=== PATIENT | female | born 1990 | race Caucasian/White ===

== ENCOUNTER 2021-02-07 12:31 | Outpatient (REF) | payer BC, SELFPAY | END 2021-02-07 12:32 | disposition home or self-care (01) | LOC: HO.LAB 12:31 | PROVIDERS: PCP Internal Medicine; Visit Provider Internal Medicine | DX: Z20.822 Contact with and (suspected) exposure to COVID-19 (principal) | CPT/HCPCS: C9803; U0003; U0005 ==

== ENCOUNTER 2022-08-02 21:51 | Emergency (ER) | payer BC, SELFPAY ==
--- NOTE | ~2022-08-02 | XR_ITS ---
EXAMINATION: XR CHEST CLINICAL INFORMATION: Short of breath COMPARISON: None available. TECHNIQUE: Frontal view of the chest was obtained. FINDINGS: Cardiac leads overlie the chest. The lungs are well expanded. There is no focal consolidation, edema, or effusion. No pneumothorax. The cardiomediastinal silhouette is within normal limits. No acute osseous abnormality. XR/XR chest 1V IMPRESSION: Clear lungs.
[2022-08-02 21:55] VITALS: BP 154/96; PULSE 103; RESP 22; TEMP 36.8; O2SAT 97; BMI 36.7
--- NOTE | 2022-08-02 22:17 | ECG_ITS ---
Test Reason : dyspnea Blood Pressure : / mmHG Vent. Rate : 089 BPM Atrial Rate : 089 BPM P-R Int : 164 ms QRS Dur : 070 ms QT Int : 354 ms P-R-T Axes : 023 022 011 degrees QTc Int : 430 ms Normal sinus rhythm with sinus arrhythmia Normal ECG No previous ECGs available Referred By: Generic ED Physician Electronically Signed By:Chapincito Viramontes
--- NOTE | 2022-08-02 22:28 | ED_ITS ---
HPI - SOB/Dyspnea General Chief Complaint: Dyspnea Stated Complaint: sob when inhaling coughing Time Seen by Provider: 08/02/22 22:23 Source: patient Mode of arrival: ambulatory Limitations: no limitations History of Present Illness HPI Narrative: Patient with no significant past medical history been coughing with wheezing for last 6 weeks cough is mostly dry, had flu like symptoms started 6 weeks ago COVID was negative since then she is not getting better does have a cat at home but been there for a long time at work some renovation is going on but it is sealed off Patient does have postnasal drip Related Data Previous Rx's Medication Instructions Recorded albuterol sulfate 90 mcg/actuation 2 puff inhalation Q4-6H PRN 08/03/22 aerosol inhaler (ProAir HFA) shortness of breath or wheezing #8.5 grams benzonatate 200 mg capsule 200 mg PO TID PRN cough #30 caps 08/03/22 cefuroxime axetil 500 mg tablet 500 mg PO BID #20 tabs 08/03/22 prednisone 20 mg tablet 40 mg PO DAILY #10 tabs 08/03/22 Allergies Allergy/AdvReac Type Severity Reaction Status Date / Time No Known Allergies Allergy Verified 08/02/22 21:55 Review of Systems Review of Systems: Yes all other systems are reviewed and are negative [facility] Social History Social History Alcohol intake: never Smoked in Last 30 Days: No Use of substances other than those prescribed or required for medical reasons: No Advance Directives: No Advance Directives Information Provided: Yes Patient : No Physical Exam Vital Signs: Vital Signs: Last Vital Signs Temp 98.4 F 08/02/22 22:38 Pulse 81 08/02/22 23:15 Resp 14 08/02/22 23:15 BP 134/77 08/02/22 23:13 Pulse Ox 97 08/02/22 23:13 O2 Del Method 08/02/22 23:13 BMI result Body Mass Index 36.7 Appearance: Alert. Oriented X3. No acute distress. ENT: Pharynx normal. Oral Mucosa moist Neck: Normal inspection. Neck supple. CVS: Normal heart rate and rhythm. Pulses normal. Respiratory: mild respiratory distress. Frequent dry cough prolonged expiration no crackles Abdomen: Soft and nontender. Bowel sounds are present, Skin: Skin warm and dry. Normal skin color. Normal skin turgor. Extremities: No lower extremity edema. No calf tenderness Neuro: Oriented X 3. Medications Administered Discontinued Medications Generic Name Dose Route Start Last Admin Trade Name [place] PRN Reason Stop Dose Admin Benzonatate 200 mg 08/02/22 22:55 08/02/22 23:17 Benzonatate 100 Mg Capsule PO 08/02/22 22:56 200 mg ONCE ONE Administration Albuterol Sulfate 5 mg/ 0 mg 08/02/22 22:55 08/02/22 23:12 Ipratropium [place]ax 0.5 mg INHALE 08/02/22 22:56 1 each ONCE ONE Administration Dexamethasone 10 mg 08/02/22 22:56 08/02/22 23:17 Dexamethasone 2 Mg Tablet PO 08/02/22 22:57 10 mg ONCE ONE Administration Medical Decision Making Medical Decision Making [facility] Narrative: Patient take with allergic bronchitis with stable labs elevated used feel levels chest x-ray negative patient improved after Decadron and albuterol inhaler d ischarge patient home on inhaler and prednisone Lab Data [facility] Lab Attestation statement: I reviewed the patient's lab results. 08/02/22 22:37 08/02/22 04:19 Labs: Lab Results 08/02/22 08/02/22 08/02/22 Range/Units 04:19 22:37 22:37 WBC 11.5 H (4.8-10.8) X10*3/uL RBC 4.39 (4.20-5.50) X10*6/uL Hgb 12.8 (12.0-16.0) g/dl Hct 37.9 (37.0-47.0) % MCV 86.3 (80.0-98.0) fL MCH 29.2 (27.0-33.0) pg MCHC 33.8 (31.0-35.0) g/dl RDW 12.4 (11.0-16.0) % Plt Count 345 (160-400) X10*3/uL MPV 10.2 (9.4-12.3) fL Immature Gran % (Auto) 0.2 (0.0-0.4) % Neut % (Auto) 50.0 (45-73) % Lymph % (Auto) 37.3 (20-40) % [place] % (Auto) 7.2 (2-11) % Eos % (Auto) 4.9 H (0-4) % Baso % (Auto) 0.4 (0-2) % Lymph # (Auto) 4.3 (1.2-4.9) X10*3/uL [place] # (Auto) 0.8 (0.1-1.2) X10*3/uL Eos # (Auto) 0.6 H (0.0-0.4) X10*3/uL Baso # (Auto) 0.1 (0.0-0.2) X10*3/uL Abs Immat Gran (auto) 0.02 (0.00-0.03) X10*3/uL Absolute Neuts (auto) 5.8 (2.0-8.3) x10*3/uL Absolute Nucleated RBC 0.000 (0.0-0.012) X10*3/uL Nucleated RBC % (auto) 0.0 (0.0-0.2) /100WBC Sodium 142 (135-145) mmol/L Potassium 4.4 (3.3-5.1) mmol/L Chloride 108 (96-108) mmol/L Carbon Dioxide 24 (22-29) mmol/L Anion Gap 14 (12-20) BUN 15 (9-16) mg/dL Creatinine 0.76 (0.5-1.4) mg/dL Estim Creat Clear Calc 126.6 Estimated GFR > 60 Random Glucose 97 (60-115) mg/dL Calcium 9.5 (8.4-10.2) mg/dL Troponin I High Sens 3.9 (<3.5-17.0) ng/L COVID-19 (KARIE) (Negative) COVID-19 Clin Com Influenza Type A (PCR) (Negative) Influenza Type B (PCR) (Negative) RSV RNA Qual (PCR) (Negative) SARS-CoV-2 RNA (RT-PCR) (Negative) 08/02/22 08/02/22 Range/Units 22:48 23:12 WBC (4.8-10.8) X10*3/uL RBC (4.20-5.50) X10*6/uL Hgb (12.0-16.0) g/dl Hct (37.0-47.0) % MCV (80.0-98.0) fL MCH (27.0-33.0) pg MCHC (31.0-35.0) g/dl RDW (11.0-16.0) % Plt Count (160-400) X10*3/uL MPV (9.4-12.3) fL Immature Gran % (Auto) (0.0-0.4) % Neut % (Auto) (45-73) % Lymph % (Auto) (20-40) % [place] % (Auto) (2-11) % Eos % (Auto) (0-4) % Baso % (Auto) (0-2) % Lymph # (Auto) (1.2-4.9) X10*3/uL [place] # (Auto) (0.1-1.2) X10*3/uL Eos # (Auto) (0.0-0.4) X10*3/uL Baso # (Auto) (0.0-0.2) X10*3/uL Abs Immat Gran (auto) (0.00-0.03) X10*3/uL Absolute Neuts (auto) (2.0-8.3) x10*3/uL Absolute Nucleated RBC (0.0-0.012) X10*3/uL Nucleated RBC % (auto) (0.0-0.2) /100WBC Sodium (135-145) mmol/L Potassium (3.3-5.1) mmol/L Chloride (96-108) mmol/L Carbon Dioxide (22-29) mmol/L Anion Gap (12-20) BUN (9-16) mg/dL Creatinine (0.5-1.4) mg/dL Estim Creat Clear Calc Estimated GFR Random Glucose (60-115) mg/dL Calcium (8.4-10.2) mg/dL Troponin I High Sens (<3.5-17.0) ng/L COVID-19 (KARIE) Negative (Negative) COVID-19 Clin Com See Note Influenza Type A (PCR) NEGATIVE (Negative) Influenza Type B (PCR) NEGATIVE (Negative) RSV RNA Qual (PCR) NEGATIVE (Negative) SARS-CoV-2 RNA (RT-PCR) NEGATIVE (Negative) Discharge Plan Discharge Clinical Impression: Allergic bronchitis Patient Disposition: Home, Self-Care Instructions: Acute Bronchitis (ED) Additional Instructions: Use inhaler as advised Cough drops and prednisone as prescribed Follow with PCP if not better Antibiotics as prescribed Prescriptions: New benzonatate 200 mg capsule 200 mg PO TID PRN (Reason: cough) Qty: 30 0RF cefuroxime axetil 500 mg tablet 500 mg PO BID Qty: 20 0RF prednisone 20 mg tablet 40 mg PO DAILY Qty: 10 0RF albuterol sulfate [ProAir HFA] 90 mcg/actuation HFA aerosol inhaler 2 puff inhalation Q4-6H PRN (Reason: shortness of breath or wheezing) Qty: 8.5 0RF
[2022-08-02 22:38] VITALS: BP 125/79; PULSE 89; RESP 11; TEMP 36.9; O2SAT 97
[2022-08-02 22:42] LABS: MANUAL DIFF FLAG NO
[2022-08-02 22:44] LABS: Basophils Absolute Auto 0.1 X10*3/uL (0.0-0.2); Basophils Percent Auto 0.4 % (0-2); Eosinophils Absolute Auto 0.6 X10*3/uL (0.0-0.4); Eosinophils Percent Auto 4.9 % (0-4); Hematocrit 37.9 % (37.0-47.0); Hemoglobin 12.8 g/dl (12.0-16.0); Imm Gran Abs Auto 0.02 X10*3/uL (0.00-0.03); Imm Gran Pct Auto 0.2 % (0.0-0.4); Lymphocytes Absolute Auto 4.3 X10*3/uL (1.2-4.9); Lymphocytes Percent Auto 37.3 % (20-40); Mean Corpuscular HGB Conc 33.8 g/dl (31.0-35.0); Mean Corpuscular Hemoglobin 29.2 pg (27.0-33.0); Mean Corpuscular Volume 86.3 fL (80.0-98.0); Mean Platelet Volume 10.2 fL (9.4-12.3); Monocytes Absolute Auto 0.8 X10*3/uL (0.1-1.2); Monocytes Percent Auto 7.2 % (2-11); Neutrophils Absolute Auto 5.8 x10*3/uL (2.0-8.3); Platelet Count 345 X10*3/uL (160-400); Red Blood Count 4.39 X10*6/uL (4.20-5.50); Red Cell Distribution Width 12.4 % (11.0-16.0); White Blood Count 11.5 X10*3/uL (4.8-10.8)
--- NOTE | 2022-08-02 22:59 | PC.NURSE ---
pt c/o chest discomfort from coughing and wheezing, expiratory wheezing, aox4, states she used An inhaler for a short period of time when she was a child, denies smoking, denies fever and chills, states cough has been ongoing for over 6 wks now able to speak in full sentences no respiratory distress
[2022-08-02 23:06] LABS: Troponin-I High Sensitivity 3.9 ng/L (<3.5-17.0)
[2022-08-02 23:13] VITALS: BP 134/77; PULSE 96; RESP 11; O2SAT 97
[2022-08-02 23:15] VITALS: PULSE 81; RESP 14; O2SAT 97
[2022-08-02] MEDS: Benzonatate 100 MG CAPSULE 200 MG PO (23:17)
[2022-08-02] MEDS: dexAMETHasone 2 MG TABLET 10 MG PO (23:17)
[2022-08-02 23:22] LABS: Anion Gap 14 (12-20); Blood Urea Nitrogen 15 mg/dL (9-16); Calcium 9.5 mg/dL (8.4-10.2); Carbon Dioxide 24 mmol/L (22-29); Chloride 108 mmol/L (96-108); Creatinine Clr Calc Pharmacy 126.6; Estimated Glomerular Filt Rate > 60; Glucose Random 97 mg/dL (60-115); Potassium 4.4 mmol/L (3.3-5.1); Sodium 142 mmol/L (135-145)
[2022-08-02 23:31] LABS: COVID-19 Test Negative (Negative); IDNOW Serial# 6674DD1D
[2022-08-02 23:53] LABS: Influenza A PCR NEGATIVE (Negative); Influenza B PCR NEGATIVE (Negative); Resp Syncy Virus RNA Qual PCR NEGATIVE (Negative); SARS COV2 PCR INHOUSE NEGATIVE (Negative)
[2022-08-03 00:16] VITALS: BP 112/56; PULSE 111; RESP 19; TEMP 36.9; O2SAT 99
[2022-08-03] MEDS: Albuterol Sulfate 90 MCG 8 GM INHALER 2 PUFF INHALE (00:19)
--- NOTE | 2022-08-03 00:26 | PC.NURSE ---
meds inc breathing txmt effective, pt denies pain, denies sob
--- NOTE | 2022-08-03 00:27 | PC.NURSE ---
Discharge instructions given/explained to pt Ambulates safely/independently No SOB, able to speak in full sentences No respiratory distress aox4
== END 2022-08-03 00:25 | disposition home or self-care (01) ==
PROVIDERS: Emergency Provider Internal Medicine; PCP Internal Medicine
DX: J45.909 Unspecified asthma, uncomplicated (principal); R06.02 Shortness of breath; Z20.822 Contact with and (suspected) exposure to COVID-19; Z20.828 Contact with and (suspected) exposure to other viral communicable diseases
CPT/HCPCS: 0241U; 36415; 71045; 80048; 84484; 85025; 87635; 93005; 94640; 99284; 99285; J8540

== ENCOUNTER 2023-01-19 19:41 | Emergency (ER) | payer BC, SELFPAY ==
--- NOTE | ~2023-01-19 | US_ITS ---
EXAMINATION: US VENOUS ULTRASOUND WITH DOPPLER LOWER EXTREMITY, LEFT CLINICAL INFORMATION: Pain and swelling. COMPARISON: None available. TECHNIQUE: Ultrasound of the deep veins is performed from the hip to the calf with compression sonography and color and pulse Doppler assessment. Spectral analysis with color-flow imaging is performed. FINDINGS: There is normal venous compression and respiratory variation and augmented flow. The visualized common femoral vein, superficial femoral vein, profunda femoral vein, popliteal vein, and the trifurcation region shows no evidence of deep venous thrombosis. There is no significant popliteal fossa cyst. There is superficial vein thrombus in the left greater saphenous vein distal to the knee. There is superficial thrombus involves the proximal calf through mid calf.. Greater saphenous vein in the thigh as well as in the distal calf is normal. If the patient's symptoms persist, followup ultrasound in 5 days 7 days might be of value to exclude proximal propagation from a non-visualized calf vein. US/US venous duplex LE IMPRESSION: 1. No DVT demonstrated in the left lower extremity. 2. Superficial vein thrombus in the greater saphenous vein distal to the knee.
[2023-01-19 19:55] VITALS: BP 170/86; PULSE 118; RESP 18; TEMP 37.1; O2SAT 100; BMI 35.7
--- NOTE | 2023-01-19 19:56 | ED_ITS ---
HPI - General Adult General Chief complaint: Extremity Injury, Lower Stated complaint: Blood clot left leg Time Seen by Provider: 01/19/23 22:02 Source: patient Mode of arrival: ambulatory Limitations: no limitations History of Present Illness HPI narrative: Patient is a 32-year-old female with cervical cancer, recent hysterectomy, just finished chemo and radiation. presenting to the emergency department with complaint of left calf pain, swelling. Denies prior DVT or PE. Is currently on hormone replacement therapy. Denies chest pain or shortness of breath. Denies numbness or tingling to leg or foot. Denies fevers. States initially thought pain was related to a pulled muscle from swimming. Related Data Previous Rx's Medication Instructions Recorded albuterol sulfate 90 mcg/actuation 2 puff inhalation Q4-6H PRN 08/03/22 aerosol inhaler (ProAir HFA) shortness of breath or wheezing #8.5 grams benzonatate 200 mg capsule 200 mg PO TID PRN cough #30 caps 08/03/22 cefuroxime axetil 500 mg tablet 500 mg PO BID #20 tabs 08/03/22 prednisone 20 mg tablet 40 mg (2 x 20 mg) PO DAILY #10 tabs 08/03/22 apixaban 5 mg (74 tabs) tablets in 5 mg PO BID #74 ea 01/19/23 a dose pack (Eliquis DVT-PE Treat 30D Start) Allergies Allergy/AdvReac Type Severity Reaction Status Date / Time No Known Allergies Allergy Verified 01/19/23 19:59 Review of Systems 2 Review of Systems: Yes all other systems are reviewed and are negative [facility] Social History Social History Alcohol intake: never Physical Exam ED Vital Signs: BMI result Body Mass Index 35.7 Appearance: Alert. Oriented X3. No acute distress. Eyes: PERRLA, No Nystagmus ENT: Pharynx normal. Oral Mucosa moist Neck: Normal inspection. Neck supple. CVS: Normal heart rate and rhythm. Pulses normal. Respiratory: No respiratory distress. Equal air entry bilateral, no wheezing/rales/rhonchi Abdomen: Soft and nontender. Bowel sounds are present, no mass palpable, no CVA tenderness Skin: Skin warm and dry. Normal skin color. Normal skin turgor. Extremities: No lower extremity edema. No calf tenderness fullness noticed in right medial aspect of the thigh Neuro: Oriented X 3. No motor deficit. Course Course Course Narrative: This is a rapid medical exam: Additional HPI, ROS, PE not included below will be deferred to primary provider. Patient is a 32-year-old female with cervical cancer, recent hysterectomy, just finished chemo and radiation. presenting to the emergency department with complaint of left calf pain, swelling. Denies prior DVT or PE. Is currently on hormone replacement therapy. Denies chest pain or shortness of breath. Denies numbness or tingling to leg or foot. Denies fevers. States initially thought pain was related to a pulled muscle from swimming. Plan: labs, US Medications Administered Discontinued Medications Generic Name Dose Route Start Last Admin Trade Name Freq PRN Reason Stop Dose Admin Apixaban 10 mg 01/19/23 22:21 01/20/23 00:03 Apixaban 5 Mg Tablet PO 01/19/23 22:22 10 mg ONCE ONE Administration Medical Decision Making Medical Decision Making [facility] Narrative: Patient with greater saphenous vein thrombosis high risk to develop DVT will discharge patient home on Eliquis advised to follow with Hematology Lab Data [facility] Lab Attestation statement: I reviewed the patient's lab results. 01/19/23 20:15 01/19/23 20:15 Labs: Lab Results 01/19/23 Range/Units 20:15 WBC 4.5 L (4.8-10.8) X10*3/uL RBC 3.80 L (4.20-5.50) X10*6/uL Hgb 11.6 L (12.0-16.0) g/dl Hct 33.5 L (37.0-47.0) % MCV 88.2 (80.0-98.0) fL MCH 30.5 (27.0-33.0) pg MCHC 34.6 (31.0-35.0) g/dl RDW 16.0 (11.0-16.0) % Plt Count 263 (160-400) X10*3/uL MPV 9.2 L (9.4-12.3) fL Immature Gran % (Auto) 1.1 H (0.0-0.4) % Neut % (Auto) 53.4 (45-73) % Lymph % (Auto) 28.2 (20-40) % [place] % (Auto) 15.1 H (2-11) % Eos % (Auto) 1.8 (0-4) % Baso % (Auto) 0.4 (0-2) % Lymph # (Auto) 1.3 (1.2-4.9) X10*3/uL [place] # (Auto) 0.7 (0.1-1.2) X10*3/uL Eos # (Auto) 0.1 (0.0-0.4) X10*3/uL Baso # (Auto) 0.0 (0.0-0.2) X10*3/uL Abs Immat Gran (auto) 0.05 H (0.00-0.03) X10*3/uL Absolute Neuts (auto) 2.4 (2.0-8.3) x10*3/uL Absolute Nucleated RBC 0.000 (0.0-0.012) X10*3/uL Nucleated RBC % (auto) 0.0 (0.0-0.2) /100WBC PT 11.0 L (11.1-13.3) SEC INR 0.9 (0.9-1.1) Sodium 142 (135-145) mmol/L Potassium 4.1 (3.3-5.1) mmol/L Chloride 107 (96-108) mmol/L Carbon Dioxide 25 (22-29) mmol/L Anion Gap 14 (12-20) BUN 15 (9-16) mg/dL Creatinine 0.85 (0.5-1.4) mg/dL Estim Creat Clear Calc 111.4 Estimated GFR > 60 Random Glucose 98 (60-115) mg/dL Calcium 10.0 (8.4-10.2) mg/dL Total Bilirubin 0.5 (0.0-1.0) mg/dL AST 14 (5-31) U/L ALT 25 (0-31) U/L Alkaline Phosphatase 51 (39-117) U/L Total Protein 7.5 (6.5-8.0) g/dL Albumin 4.4 (3.5-5.0) g/dL Radiology Impression Discussion of test interpretation with radiology: I have reviewed the radiologist's reading. Radiologist Impression: [address] [address] Ultrasound Report Signed Patient: Marifer Reyes MR#: [id number] : 1990 Acct:[id number] Age/Sex: 32 / F ADM Date: 01/19/23 Loc: HO.ED Attending Dr: Ordering Physician: Nicolasa Cross NP Date of Service: 01/19/23 Procedure(s): US venous duplex LE LT Accession Number(s): [id number] cc: SHERRY KHAN MD; Nicolasa Cross NP~ EXAMINATION: US VENOUS ULTRASOUND WITH DOPPLER LOWER EXTREMITY, LEFT CLINICAL INFORMATION: Pain and swelling. COMPARISON: None available. TECHNIQUE: Ultrasound of the deep veins is performed from the hip to the calf with compression sonography and color and pulse Doppler assessment. Spectral analysis with color-flow imaging is performed. FINDINGS: There is normal venous compression and respiratory variation and augmented flow. The visualized common femoral vein, superficial femoral vein, profunda femoral vein, popliteal vein, and the trifurcation region shows no evidence of deep venous thrombosis. There is no significant popliteal fossa cyst. There is superficial vein thrombus in the left greater saphenous vein distal to the knee. There is superficial thrombus involves the proximal calf through mid calf.. Greater saphenous vein in the thigh as well as in the distal calf is normal. If the patient's symptoms persist, followup ultrasound in 5 days 7 days might be of value to exclude proximal propagation from a non-visualized calf vein. US/US venous duplex LE LT IMPRESSION: 1. No DVT demonstrated in the left lower extremity. 2. Superficial vein thrombus in the greater saphenous vein distal to the knee. Discharge Plan Discharge Clinical Impression: DVT, lower extremity, distal Patient Disposition: Home, Self-Care Instructions: Deep Vein Thrombosis (ED) Additional Instructions: You have a superficial vein thrombosis in greater saphenous vein which is a large vein can progress to deeper with thrombosis You were advised to take blood thinner for at least 3 months and follow-up with food court team member for further review Follow with PCP Prescriptions: New Eliquis DVT-PE Treat 30D Start 5 mg (74 tabs) tablets,dose pack 5 mg PO BID Qty: 74 0RF No Action benzonatate 200 mg capsule 200 mg PO TID PRN (Reason: cough) Qty: 30 0RF cefuroxime axetil 500 mg tablet 500 mg PO BID Qty: 20 0RF prednisone 20 mg tablet 40 mg PO DAILY Qty: 10 0RF albuterol sulfate [ProAir HFA] 90 mcg/actuation HFA aerosol inhaler 2 puff inhalation Q4-6H PRN (Reason: shortness of breath or wheezing) Qty: 8.5 0RF Referrals: Raj De La Cruz MD [Physician] - 1 week Interventions: ED Discharge Assessment Last Done: 01/20/23 00:07 Discharge Date/Time: 01/20/23 00:09
[2023-01-19 20:21] LABS: MANUAL DIFF FLAG NO
[2023-01-19 20:22] LABS: Basophils Percent Auto 0.4 % (0-2); Eosinophils Absolute Auto 0.1 X10*3/uL (0.0-0.4); Eosinophils Percent Auto 1.8 % (0-4); Hematocrit 33.5 % (37.0-47.0); Hemoglobin 11.6 g/dl (12.0-16.0); Imm Gran Abs Auto 0.05 X10*3/uL (0.00-0.03); Imm Gran Pct Auto 1.1 % (0.0-0.4); Lymphocytes Absolute Auto 1.3 X10*3/uL (1.2-4.9); Lymphocytes Percent Auto 28.2 % (20-40); Mean Corpuscular HGB Conc 34.6 g/dl (31.0-35.0); Mean Corpuscular Hemoglobin 30.5 pg (27.0-33.0); Mean Corpuscular Volume 88.2 fL (80.0-98.0); Mean Platelet Volume 9.2 fL (9.4-12.3); Monocytes Absolute Auto 0.7 X10*3/uL (0.1-1.2); Monocytes Percent Auto 15.1 % (2-11); Neutrophils Absolute Auto 2.4 x10*3/uL (2.0-8.3); Neutrophils Percent Auto 53.4 % (45-73); Platelet Count 263 X10*3/uL (160-400); White Blood Count 4.5 X10*3/uL (4.8-10.8)
[2023-01-19 20:31] LABS: INTERNATIONAL NORM RATIO 0.9 (0.9-1.1)
[2023-01-19 20:35] LABS: Alanine Aminotransferase 25 U/L (0-31); Albumin Level 4.4 g/dL (3.5-5.0); Alkaline Phosphatase 51 U/L (39-117); Anion Gap 14 (12-20); Aspartate Amino Transferase 14 U/L (5-31); Bilirubin Total 0.5 mg/dL (0.0-1.0); Blood Urea Nitrogen 15 mg/dL (9-16); Carbon Dioxide 25 mmol/L (22-29); Chloride 107 mmol/L (96-108); Creatinine Clr Calc Pharmacy 111.4; Estimated Glomerular Filt Rate > 60; Glucose Random 98 mg/dL (60-115); Potassium 4.1 mmol/L (3.3-5.1); Sodium 142 mmol/L (135-145); Total Protein 7.5 g/dL (6.5-8.0)
[2023-01-19 23:49] VITALS: BP 101/39; PULSE 95; RESP 17; TEMP 36.8; O2SAT 97
[2023-01-20] MEDS: Apixaban 5 MG TABLET 10 MG PO (00:03)
== END 2023-01-20 00:09 | disposition home or self-care (01) ==
PROVIDERS: Registered Nurse Emergency; Emergency Provider Internal Medicine; PCP Internal Medicine
DX: I82.4Z2 Acute embolism and thrombosis of unspecified deep veins of left distal lower extremity (principal); R60.0 Localized edema; M79.605 Pain in left leg; Z79.899 Other long term (current) drug therapy
CPT/HCPCS: 36415; 80053; 85025; 85610; 93971; 99284

== ENCOUNTER 2024-07-05 07:47 | Emergency (ER) | payer BC, SELFPAY ==
[2024-07-05 07:48] VITALS: BP 149/103; PULSE 118; RESP 20; TEMP 36.4; O2SAT 97; BMI 36.8
--- OUTSIDE RECORDS SUMMARY | 2024-07-05 08:01 | XMS_ITS | Clinical Summary ---
Author Organization [facility] ity Address [address] [place] [address] Care Team Providers Care Fixing Carpenter Name Role Phone Jenni Luz MD Primary Care Provider Unava ilable Medical History Medical History Date Comments Allergic rhinitis DX:Allergic rh initis Nevus 05/14/2011 DX:Nevus Family History Medical History Relation Name Comments Sleep disorder Brother 1 unknown Hypertension Father Other: Heart disease Father [place] @51, [place] @54, hx stenting Diabetes Maternal Grandmother Type II Other cancer Mother Hypertension Paternal Grandfather Other: Heart disease Paternal Grandfather Other cancer Paternal Grandmother Relation Name Status Comments Brother 1 Brother 2 Alive Father Alive Maternal Grandmother Alive Mother Alive Paternal Grandfather Paternal Grandmother Son Alive Social History Tobacco Use Types Packs/Day Years Used Date Smoking Tobacco: Never Smokeless Tobacco: Never Alcohol Use Standard Drinks/Week Comments Yes 0 (1 standard drink = 0.6 oz pur e alcohol) Comments Unknown Sex and Gender Information Value Date Recorded Sex Assigned at Not on file Legal Sex Female 9:20 PM EST Gender Identity Not on file Sexual Orientation Not on file Obstetrics History Plan of Treatment Health Maintenance Due Date Last Done Comments COVID-19 Vaccine (#1) 1993 Pneumococcal Vaccine: Pediatrics (0 to 5 Years) and At-Risk Patients (6 to 64 Years) (1 of 2 - PCV) 2007 Cervical Cancer Screening: Pap Smear 2009 DTaP,Tdap,and Td Vaccines (7 - Td or Tdap) 10/07/2010 10/07/2000, 03/04/1993, 09/28/1989, Additional history exists Depression Screening 07/24/2023 HIV Screening 07/24/2023 Hepatitis C Screening 07/24/2023 Social Influencers of Health Screening 07/24/2023 Influenza Vaccine (#1) 2024 02/29/2012 HIB Vaccines Completed 09/28/1989 IPV Vaccines Completed 03/04/1993, 09/15, 1988, Additional history exists Varicella Vaccines Aged Out 02/25/1996 No longer eligible based on patient's age to complete this topic MMR Vaccines Completed 04/15/1999, 06/29/1989 Hepatitis B Vaccines Completed 05/07/2001, 10/07/2000, 04/06/2000 Meningococcal ACWY Vaccine Completed 10/08/2006 HPV Vaccines Aged Out No longer eligi ble based on patient's age to complete this topic Hepatitis A Vaccines Aged Out No long er eligible based on patient's age to complete this topic Meningococcal B Vacine Aged Out No lo nger eligible based on patient's age to complete this topic RSV Immunization Patients Under 20 months Aged Out No longer eligible based on patient's age to complete this topic Care Teams Fixing Carpenter Relationship Specialty Start Date End Date Jenni Luz MD PCP - General Internal Medicine 01/27/11
--- NOTE | 2024-07-05 10:19 | ED.EPISTAXIS ---
History of Present Illness General Chief Complaint: Epistaxis Stated Complaint: Nosebleed 4 hours Time Seen by Provider: 07/05/24 09:10 Source: patient, RN notes reviewed and old records reviewed Mode of arrival: ambulatory History of Present Illness HPI Narrative: 34-year-old female with past medical history chronic nosebleeds presenting to the ED complaining of intermittent left-sided epistaxis since 04:00AM. Reports URI symptoms with rhinorrhea, sore throat, dry cough over the past 5 days, states has been blowing nose frequently at home. To calm COVID-19 testing which was negative. Denies anticoagulation use or nasal trauma. Denies lightheadedness/dizziness, abdominal pain, nausea/vomiting, SOB/CP. Related Data Previous Rx's ?Medication ?Instructions ?Recorded albuterol sulfate 90 mcg/actuation 2 puff inhalation Q4-6H PRN 08/03/22 aerosol inhaler (ProAir HFA) shortness of breath or wheezing #8.5 grams benzonatate 200 mg capsule 200 mg PO TID PRN cough #30 caps 08/03/22 cefuroxime axetil 500 mg tablet 500 mg PO BID #20 tabs 08/03/22 prednisone 20 mg tablet 40 mg (2 x 20 mg) PO DAILY #10 tabs 08/03/22 apixaban 5 mg (74 tabs) tablets in 5 mg PO BID #74 ea 01/19/23 a dose pack (Eliquis DVT-PE Treat 30D Start) Allergies Allergy/AdvReac Type Severity Reaction Status Date / Time No Known Allergies Allergy Verified 07/05/24 07:53 Review of Systems Review of Systems: Yes all other systems are reviewed and are negative Constitutional: Constitutional: Reports as per HPI [facility] Past Medical History Attestation statement: The following information was validated with the patient. Source: old records reviewed Social History Social History Alcohol intake: never Advance Directives: Yes Advance Directives Information Provided: Yes Advance Directives on File: No Do you have a plan to hurt others: No Plan Physical Exam Vital Signs: Vital Signs: Last Vital Signs Temp 98.0 F 07/05/24 12:49 Pulse 76 07/05/24 12:49 Resp 16 07/05/24 12:49 BP 105/57 L 07/05/24 12:49 Pulse Ox 97 07/05/24 12:49 O2 Del Method Room Air 07/05/24 12:49 BMI result Body Mass Index 36.8 Const: General: cooperative, healthy appearing and no acute distress Orientation/consciousness: patient oriented x3 Limitations: no limitations HEENT: Head: Yes normal to inspection and Yes atraumatic Ears: hearing grossly normal bilaterally General nose exam: Epistaxis present on the left anterior source, dried blood present, active bleeding and clots present Face and sinus: Yes normal facial exam Throat: Yes tonsils normal, Yes uvula midline, No uvula laterally displaced and No uvular edema Eyes: General: appearance normal, both eyes and all related structures EOM: EOMs intact bilaterally Neck: Neck: Yes normal visual inspection and Yes no meningeal signs Resp: Effort & Inspection: normal respiratory effort and no respiratory distress Cardio: Rate: regular rate Skin: Rashes: no rashes Wounds: no wounds Neuro: General: patient oriented x3, tone normal and no meningeal signs Cranial nerves: Yes CN's II-XII intact bilaterally Gait exam (Neuro): Normal gait present Extrem: General: Yes normal to inspection Course Course Course Narrative: -epistaxis persisted through direct pressure. Afrin and cautery attempted. Will re-evaluate > patient blood through Afrin-soaked gauze. Will try TXA -1158--soaked gauze with TXA with direct pressure for 20 minutes. Removed with bleeding control. We will continue to monitor -H&H stable. Labs otherwise reassuring. Rapid strep negative >1240--on re-evaluation bleeding still controlled. Patient is safe for discharge home at this time Results discussed with patient including worrisome signs and symptoms and strict return precautions, and when to return to the emergency department. They verbalized understanding and feel safe for discharge at this time. Medications Administered Discontinued Medications Generic Name Dose Route Start Last Admin Trade Name Freq PRN Reason Stop Dose Admin Ondansetron HCl 4 mg 07/05/24 12:37 07/05/24 12:46 Ondansetron Odt 4 Mg Tab.Rapdis TRANSLINGU 07/05/24 12:38 4 mg ONCE ONE Administration Oxymetazoline HCl 2 spray 07/05/24 09:58 07/05/24 11:24 Oxymetazoline Hcl 0.05 % Nasal 15 Ml [place] NOSTRIL-B 07/05/24 09:59 2 spray ONCE ONE Administration Silver Nitrate 1 appl 07/05/24 10:34 07/05/24 11:25 Silver Nitrate Applicator Stick..Ea. TOPICAL 07/05/24 10:35 1 appl ONCE ONE Administration Tranexamic Acid 500 mg 07/05/24 10:57 07/05/24 11:28 Tranexamic Acid 1,000 Mg/10 Ml Vial INTRANASAL 07/05/24 10:58 500 mg ONCE ONE Administration Medical Decision Making Medical Decision Making [facility] Narrative: 10:22-- 34-year-old female with past medical history chronic nosebleeds presenting to the ED complaining of intermittent left-sided epistaxis since 04:00AM. On exam hypertensive, tachycardic, lungs CTA, oropharynx WNL, active epistaxis noted from left nare, anterior source appreciated with some bleeding noted to posterior oropharynx. Concern for viral illness and epistaxis. Low suspicion for severe sepsis as likely viral etiology. Lower suspicion for acute pneumonia/bronchitis Plan: Rapid strep, epistaxis care. We will avoid viral testing at this time to avoid additional epistaxis - does not chemical cell changer today Please refer to course for remaining clinical decision making, interpretation of labs/imaging results, and discussions with consultants and/or family members. Differential Diagnosis Differential Diagnoses: The differential diagnosis associated with the presentation includes As above Admission/Observation Consideration of admission/observation: Escalation of care including admission/observation considered Lab Data [facility] Lab Attestation statement: I reviewed the patient's lab results. 07/05/24 11:16 07/05/24 11:16 Labs: Lab Results 07/05/24 Range/Units 11:16 WBC 4.7 L (4.8-10.8) X10*3/uL RBC 4.12 L (4.20-5.50) X10*6/uL Hgb 12.0 (12.0-16.0) g/dl Hct 35.7 L (37.0-47.0) % MCV 86.7 (80.0-98.0) fL MCH 29.1 (27.0-33.0) pg MCHC 33.6 (31.0-35.0) g/dl RDW 12.6 (11.0-16.0) % Plt Count 208 (160-400) X10*3/uL MPV 10.4 (9.4-12.3) fL Immature Gran % (Auto) 0.6 H (0.0-0.4) % Neut % (Auto) 60.1 (45-73) % Lymph % (Auto) 27.0 (20-40) % [place] % (Auto) 11.2 H (2-11) % Eos % (Auto) 0.9 (0-4) % Baso % (Auto) 0.2 (0-2) % Lymph # (Auto) 1.3 (1.2-4.9) X10*3/uL [place] # (Auto) 0.5 (0.1-1.2) X10*3/uL Eos # (Auto) 0.0 (0.0-0.4) X10*3/uL Baso # (Auto) 0.0 (0.0-0.2) X10*3/uL Abs Immat Gran (auto) 0.03 (0.00-0.03) X10*3/uL Absolute Neuts (auto) 2.8 (2.0-8.3) x10*3/uL Absolute Nucleated RBC 0.000 (0.0-0.012) X10*3/uL Nucleated RBC % (auto) 0.0 (0.0-0.2) /100WBC PT 12.9 H (10.9-12.4) SEC INR 1.1 (0.9-1.1) Sodium 139 (135-145) mmol/L Potassium 4.8 (3.3-5.1) mmol/L Chloride 106 (96-108) mmol/L Carbon Dioxide 24 (22-29) mmol/L Anion Gap 14 (12-20) BUN 16 (9-16) mg/dL Creatinine 0.62 (0.5-1.4) mg/dL Estim Creat Clear Calc 152.4 Estimated GFR > 60 Random Glucose 99 (60-115) mg/dL Calcium 9.6 (8.4-10.2) mg/dL S. pyogenes GrpA KAREN Negative (Negative) Independent Historian Clinical information obtained from an independent historian. History obtained from or confirmed by: Other External Record Review External record reviewed: Inpatient record, Office record, Outpatient record, Prior outpatient labs, Prior outpatient radiology, Primary care record and Outside ED record Tests considered The following testing was considered but not selected: As above Prescription Management I considered prescription management with: Other Chronic Conditions Patient?s care impacted by: Other Social Determinants Patient?s care significantly limited by Social Determinants of Health including: Other Social Determinant of Health Discharge Plan Discharge Clinical Impression: Epistaxis, Acute viral syndrome Patient Disposition: Home, Self-Care Instructions: Nosebleed (ED), Viral Syndrome (ED) Additional Instructions: Your blood work is reassuring You tested negative for strep throat Your bleeding was controlled today in the emergency department. Please avoid any coughing, increased pressure to the face, nasal blowing, sneezing If you do rebleed hold direct pressure for 15 minutes without letting go, if this does not work return to the emergency department Follow up with her PCP Use a humidifier Prescriptions: No Action benzonatate 200 mg capsule 200 mg PO TID PRN (Reason: cough) Qty: 30 0RF cefuroxime axetil 500 mg tablet 500 mg PO BID Qty: 20 0RF prednisone 20 mg tablet 40 mg PO DAILY Qty: 10 0RF albuterol sulfate [ProAir HFA] 90 mcg/actuation HFA aerosol inhaler 2 puff inhalation Q4-6H PRN (Reason: shortness of breath or wheezing) Qty: 8.5 0RF Eliquis DVT-PE Treat 30D Start 5 mg (74 tabs) tablets,dose pack 5 mg PO BID Qty: 74 0RF Referrals: Petty Bernard FNP-BC [Primary Care Provider] - 3 days Stand Alone Forms: Work/School Release Interventions: ED Discharge Assessment Last Done: 07/05/24 12:49 Discharge Date/Time: 07/05/24 12:50 Print Language: Romanian
[2024-07-05] MEDS: Oxymetazoline HCl 0.05 % Nasal 15 ML SPRAY 2 SPRAY NOSTRIL-B (11:24)
[2024-07-05 11:25] LABS: MANUAL DIFF FLAG NO
[2024-07-05] MEDS: Silver Nitrate Applicator STICK..EA. 1 APPL TOPICAL (11:25)
[2024-07-05] MEDS: Tranexamic Acid 1,000 MG/10 ML VIAL 500 MG INTRANASAL (11:28)
[2024-07-05 11:31] LABS: INTERNATIONAL NORM RATIO 1.1 (0.9-1.1); Prothrombin Time 12.9 SEC (10.9-12.4)
[2024-07-05 11:33] LABS: Basophils Percent Auto 0.2 % (0-2); Eosinophils Percent Auto 0.9 % (0-4); Hematocrit 35.7 % (37.0-47.0); Imm Gran Abs Auto 0.03 X10*3/uL (0.00-0.03); Imm Gran Pct Auto 0.6 % (0.0-0.4); Lymphocytes Absolute Auto 1.3 X10*3/uL (1.2-4.9); Mean Corpuscular HGB Conc 33.6 g/dl (31.0-35.0); Mean Corpuscular Hemoglobin 29.1 pg (27.0-33.0); Mean Corpuscular Volume 86.7 fL (80.0-98.0); Mean Platelet Volume 10.4 fL (9.4-12.3); Monocytes Absolute Auto 0.5 X10*3/uL (0.1-1.2); Monocytes Percent Auto 11.2 % (2-11); Neutrophils Absolute Auto 2.8 x10*3/uL (2.0-8.3); Neutrophils Percent Auto 60.1 % (45-73); Platelet Count 208 X10*3/uL (160-400); Red Blood Count 4.12 X10*6/uL (4.20-5.50); Red Cell Distribution Width 12.6 % (11.0-16.0); White Blood Count 4.7 X10*3/uL (4.8-10.8)
[2024-07-05 11:50] LABS: Anion Gap 14 (12-20); Blood Urea Nitrogen 16 mg/dL (9-16); Calcium 9.6 mg/dL (8.4-10.2); Carbon Dioxide 24 mmol/L (22-29); Chloride 106 mmol/L (96-108); Creatinine Clr Calc Pharmacy 152.4; Estimated Glomerular Filt Rate > 60; Glucose Random 99 mg/dL (60-115); IDNOW Serial# 58CA691E; Potassium 4.8 mmol/L (3.3-5.1); Sodium 139 mmol/L (135-145); Strep A Nucleic Acid Negative (Negative)
[2024-07-05 11:52] VITALS: BP 105/57; PULSE 76; RESP 16; O2SAT 97
[2024-07-05] MEDS: Ondansetron ODT 4 MG TAB.RAPDIS TRANSLINGU (12:46)
[2024-07-05 12:49] VITALS: BP 105/57; PULSE 76; RESP 16; TEMP 36.7; O2SAT 97
== END 2024-07-05 12:50 | disposition home or self-care (01) ==
PROVIDERS: Physician Assistant; Emergency Provider Emergency Medicine Emergency Medical Services; PCP Registered Nurse
DX: R04.0 Epistaxis (principal); B34.9 Viral infection, unspecified; R05.9 Cough, unspecified; J02.9 Acute pharyngitis, unspecified
CPT/HCPCS: 80048; 85025; 85610; 87651; 99283